=== PATIENT | male | born 1975 | race African-American/Black ===

== ENCOUNTER 2024-02-07 11:48 | Emergency (ER) | payer SELFPAY ==
[2024-02-07] MEDS ORDERED: Ketorolac Tromethamine 30 MG (1 mL) VIAL ONE (12:17)
== END 2024-02-07 13:20 | disposition home or self-care (01) ==
LOC: CSHERS 11:48
DX: G62.9 Polyneuropathy, unspecified (principal); F17.210 Nicotine dependence, cigarettes, uncomplicated
CPT/HCPCS: 36415; 85379; 96372; 99283; J1885

== ENCOUNTER 2024-02-24 13:08 | Emergency (ER) | payer SELFPAY ==
[2024-02-24] MEDS ORDERED: Ketorolac Tromethamine 30 MG (1 mL) VIAL ONE (13:46)
== END 2024-02-24 14:23 | disposition home or self-care (01) ==
LOC: CSHERS 13:08
DX: M54.41 Lumbago with sciatica, right side (principal); F17.210 Nicotine dependence, cigarettes, uncomplicated
CPT/HCPCS: 96372; 99283; J1885

== ENCOUNTER 2024-03-26 06:03 | Emergency (ER) | payer OTHER ==
[2024-03-26] MEDS ORDERED: Ketorolac Tromethamine 30 MG (1 mL) VIAL ONE (06:19)
== END 2024-03-26 06:39 | disposition home or self-care (01) ==
LOC: CSHERS 06:03
DX: M54.41 Lumbago with sciatica, right side (principal); F17.210 Nicotine dependence, cigarettes, uncomplicated
CPT/HCPCS: 96372; 99283; J1885

== ENCOUNTER 2024-08-13 11:34 | Emergency (ER) | payer OTHER | END 2024-08-13 12:09 | disposition home or self-care (01) | LOC: CSHERS 11:34 | DX: M54.41 Lumbago with sciatica, right side (principal); F17.210 Nicotine dependence, cigarettes, uncomplicated | CPT/HCPCS: 99283 ==